=== PATIENT | female | born 1975 | race Caucasian/White ===

== ENCOUNTER 2017-04-05 00:29 | Emergency (ER) | payer MEDICARE ==
[~2017-04-05] VITALS: Ht 160 cm; Wt 84.7 kg
[~2017-04-05 00:29] MED LIST: CYMB30CA PO; LYRI150C PO; MS C30TA PO; OXYC-395 PO; PHEN-414 PO; PHENO60 PO; XANA1TAB2 PO
[2017-04-05 00:36] VITALS: BP 115/89; PULSE 96; RESP 20; TEMP 97.6; O2SAT 99
[2017-04-05] MEDS ORDERED: LEVE250 PO (00:52)
[2017-04-05] MEDS ORDERED: MS C15TA2 PO (00:52)
[2017-04-05] MEDS ORDERED: TIZA4CAP3 PO (00:53)
[2017-04-05] MEDS ORDERED: HALC0.25 PO (00:54)
--- NOTE | 2017-04-05 02:41 | PD ---
HPI Chief Complaint: GI Complaint Time Seen by Provider: 02:35 Travel History International Travel<30 days: No Contact w/Intl Traveler<30days: No Traveled to known affect area: No History of Present Illness HPI The patient is a 42-year-old female that has a history of polysubstance abuse and has been taking narcotics as well as benzodiazepines and alcohol. She went into a hospital in [place] to detox and they said she had a "blocked bowel". They gave her medications to relieve a fecal impaction. Her last bowel movement was 2 days ago. Apparently she continues to take prescribe narcotics, MS Contin, for pain management. She is also on Xanax and Cymbalta as well as pregabalin. She does pass gas. She has nausea without vomiting. PFSH Past Medical History ADD: Yes Arthritis: Yes (BACK) Asthma: No Autoimmune Disease: No Blood Disorders: No Bipolar Disorder: Yes Anxiety: Yes Depression: Yes Heart Rhythm Problems: No Cancer: No Cardiovascular Problems: Yes (HYPERLIPIDEMIA) High Cholesterol: Yes Chemotherapy: No Chest Pain: No Congestive Heart Failure: No COPD: Yes Diabetes: No Diminished Hearing: No Endocrine: No Fibromyalgia: Yes Gastrointestinal Disorders: No GERD: Yes Genitourinary: No Headaches: Yes Hepatitis: No Hiatal Hernia: No Herniated Disk: Yes (L4, L5, FRACTURED COCCYX) Hypertension: No Immune Disorder: No Implanted Vascular Access Dvce: Yes Kidney Stones: No Musculoskeletal: Yes Neurologic: Yes Psychiatric: Yes Reproductive: No Respiratory: Yes Immunizations Current: No Migraines: Yes Radiation Therapy: No Renal Failure: No Seizures: Yes Sickle Cell Disease: No Sleep Apnea: No Thyroid Disease: No PNEUMOCCOCAL Vaccine (Year): 2 ?: Not LMP: 5-5-17 : 3 Para: 0 Miscarriage: 3 : 0 Dilation and Curettage (D&C): Yes Past Surgical History Abdominal Surgery: No AICD: No Arteriovenous Shunt: No Body Medical Devices: 2 METAL PLATES AND SCREWS IN LEFT ELBOW Cardiac Surgery: No Ear Surgery: No Endocrine Surgery: No Eye Surgery: No Genitourinary Surgery: No Gynecologic Surgery: Yes (3 D&C'S) Insulin Pump: No Joint Replacement: No Neurologic Surgery: No Oral Surgery: No Pacemaker: No Thoracic Surgery: No Tonsillectomy: Yes Other Surgery: Yes Social History Alcohol Use: Yes (PRINCESS ONLY) Tobacco Use: Yes (1.5 PPD) Substance Use: Yes (WEED OCCASIONAL) Allergies-Medications (Allergen,Severity, Reaction): Coded Allergies: Penicillin (Verified Allergy, Severe, "rash", 04/05/17) Uncoded Allergies: SUBUTEX (Allergy, Severe, 03/10/11) CONTROL PILLS (Adverse Reaction, Severe, 03/10/11) Reported Meds & Prescriptions Reported Meds & Active Scripts Active Reported Halcion (Triazolam) 0.25 Mg Tab 0.5 Mg PO HS Tizanidine (Tizanidine HCl) 4 Mg Cap 4 Mg PO TID Keppra (Levetiracetam) 250 Mg Tab 500 Mg PO BID Ms Contin (Morphine Sulfate) 15 Mg Tab 30 Mg PO Q8H Xanax (Alprazolam) 1 Mg Tab 1 Mg PO Q6H PRN Lyrica (Pregabalin) 150 Mg Cap 150 Mg PO BID Cymbalta DR (Duloxetine HCl) 30 Mg Capdr 60 Mg PO DAILY Review of Systems Except as stated in HPI: all other systems reviewed are Neg Physical Exam Narrative GENERAL: The patient is alert, oriented 3, exhibits some slurred speech. Her vital signs show heart rate of 96 but are otherwise normal. She does appear mildly dehydrated. SKIN: Focused skin assessment warm/dry. HEAD: Atraumatic. Normocephalic. EYES: Pupils equal and round. No scleral icterus. No injection or drainage. ENT: No nasal bleeding or discharge. Mucous membranes pink and moist. NECK: Trachea midline. No JVD. CARDIOVASCULAR: Regular rate and rhythm. No murmur appreciated. RESPIRATORY: No accessory muscle use. Clear to auscultation. Breath sounds equal bilaterally. GASTROINTESTINAL: Abdomen soft, with slight tenderness in the left upper quadrant direct palpation, nondistended. Hepatic and splenic margins not palpable. No guarding or rebound is present. MUSCULOSKELETAL: No obvious deformities. No clubbing. No cyanosis. No edema. NEUROLOGICAL: Awake and alert. No obvious cranial nerve deficits. Motor grossly within normal limits. Normal speech. PSYCHIATRIC: Appropriate mood and affect; insight and judgment normal. Data Data Last Documented VS Vital Signs Date Time Temp Pulse Resp B/P Pulse Ox O2 Delivery O2 Flow Rate FiO2 04/05/17 03:53 98.3 83 16 119/72 98 Room Air Orders Complete Blood Count With Diff (5/25/17 02:42) Comprehensive Metabolic Panel (04/05/17 02:42) Urinalysis - C+S If Indicated (04/05/17 02:42) Ct Abd/Pel W Iv Contrast(Rout) (04/05/17 02:42) Drug Screen, Random Urine (04/05/17 02:42) Ed Urine Pregnancytest Poc (04/05/17 02:44) Iohexol 350 Inj (Omnipaque 350 Inj) (04/05/17 03:38) Labs Laboratory Tests Test 04/05/17 03:00 White Blood Count 5.7 TH/MM3 Red Blood Count 3.68 MIL/MM3 Hemoglobin 10.0 GM/DL Hematocrit 29.8 % Mean Corpuscular Volume 81.1 FL Mean Corpuscular Hemoglobin 27.1 PG Mean Corpuscular Hemoglobin 33.5 % Concent Red Cell Distribution Width 13.6 % Platelet Count 227 TH/MM3 Mean Platelet Volume 8.4 FL Neutrophils (%) (Auto) 40.5 % Lymphocytes (%) (Auto) 40.9 % Monocytes (%) (Auto) 8.9 % Eosinophils (%) (Auto) 9.3 % Basophils (%) (Auto) 0.4 % Neutrophils # (Auto) 2.3 TH/MM3 Lymphocytes # (Auto) 2.4 TH/MM3 Monocytes # (Auto) 0.5 TH/MM3 Eosinophils # (Auto) 0.5 TH/MM3 Basophils # (Auto) 0.0 TH/MM3 CBC Comment DIFF FINAL Differential Comment Urine Color STRAW Urine Turbidity CLEAR Urine pH 5.5 Urine Specific Hanson 1.003 Urine Protein NEG mg/dL Urine Glucose (UA) NEG mg/dL Urine Ketones NEG mg/dL Urine Occult Blood NEG Urine Nitrite NEG Urine Bilirubin NEG Urine Leukocyte Esterase NEG Urine RBC 0-2 /hpf Urine WBC 0-2 /hpf Urine Squamous Epithelial 0-5 /hpf Cells Urine Bacteria NONE /hpf Microscopic Urinalysis Comment CULT NOT INDICATED Sodium Level 138 MEQ/L Potassium Level 3.6 MEQ/L Chloride Level 101 MEQ/L Carbon Dioxide Level 29.5 MEQ/L Anion Gap 8 MEQ/L Blood Urea Nitrogen 12 MG/DL Creatinine 0.76 MG/DL Estimat Glomerular Filtration 83 ML/MIN Rate Random Glucose 69 MG/DL Calcium Level 8.5 MG/DL Total Bilirubin 0.2 MG/DL Aspartate Amino Transf 61 U/L (AST/SGOT) Alanine Aminotransferase 83 U/L (ALT/SGPT) Alkaline Phosphatase 204 U/L Total Protein 6.7 GM/DL Albumin 3.1 GM/DL Urine Opiates Screen POS Urine Barbiturates Screen NEG Urine Amphetamines Screen NEG Urine Benzodiazepines Screen POS Urine Cocaine Screen NEG Urine Cannabinoids Screen NEG MDM Medical Decision Making Medical Screen Exam Complete: Yes Emergency Medical Condition: Yes Medical Record Reviewed: Yes Interpretation(s) The urinalysis is normal and culture is not indicated. The toxicology screen is positive for opiates and benzodiazepines, both are prescribed to this patient. The CBC is normal except for hemoglobin of 10.0 and hematocrit of 29.8. The complete metabolic profile shows a GFR of 83, glucose 69, AST of 61 and ALT of 83 and alkaline phosphatase of [address] and albumin [address]1. The CT abdomen pelvis with IV contrast is normal. Differential Diagnosis Bowel obstruction, fecal impaction, opiate-induced constipation, electrolyte disorder, dehydration Narrative Course The patient likely has opioid-induced ileus. She should try to get off all narcotics. There is no evidence of obstruction at this time. Diagnosis Primary Impression: Adynamic ileus Additional Instructions: As we discussed, try to get off all narcotics. I believe that the bowel problems that you are experiencing are from chronic opiate use. Increase liquid intake and follow-up with your primary care physician. Med/Other Pt SpecificInfo: No Change to Meds Disposition: 01 DISCHARGE HOME Condition: Stable Brayden Ann MD April 05, 2017 02:41
[2017-04-05 03:13] LABS: AUTOMATED NEUTROPHIL # 2.3 TH/MM3 (1.8-7.7); BASOPHIL % 0.4 % (0.0-2.0); EOSINOPHIL # 0.5 TH/MM3 (0-0.4); EOSINOPHIL % 9.3 % (0.0-4.0); HEMATOCRIT 29.8 % (35.0-46.0); HEMO FLAGS DIFF FINAL; LYMPH % 40.9 % (9.0-44.0); LYMPHOCYTE # 2.4 TH/MM3 (1.0-4.8); MEAN CELL VOLUME 81.1 FL (80.0-100.0); MEAN CORPUSCULAR HEMOGLOBIN 27.1 PG (27.0-34.0); MEAN CORPUSCULAR HGB CONC 33.5 % (32.0-36.0); MONO % 8.9 % (0.0-8.0); NEUT % 40.5 % (16.0-70.0); PLATELET COUNT 227 TH/MM3 (150-450); RED BLOOD COUNT 3.68 MIL/MM3 (4.00-5.30); RED CELL DISTRIBUTION WIDTH 13.6 % (11.6-17.2); WHITE BLOOD COUNT 5.7 TH/MM3 (4.0-11.0)
[2017-04-05 03:15] LABS: BLOOD, URINE NEG (NEG); GLUCOSE,URINE NEG (NEG); KETONE, URINE NEG (NEG); NITRITE,URINE NEG (NEG); PH, URINE 5.5 (5.0-8.5)
[2017-04-05 03:20] LABS: COMMENT (UR) CULT NOT INDICATED; CULTURE IF INDICATED CULT NOT INDICATED; RBC, URINE 0-2 /hpf (0-3); SQUAMOUS EPITHELIAL CELL URINE 0-5 /hpf (0-5); URINE COLOR STRAW (YELLW/STRAW); WBC, URINE 0-2 /hpf (0-5)
[2017-04-05 03:21] LABS: CHLORIDE 101 MEQ/L (98-107); POTASSIUM 3.6 MEQ/L (3.5-5.1); SODIUM (NA) 138 MEQ/L (136-145)
[2017-04-05 03:23] LABS: AMPHETAMINE, URINE NEG (NEG); BARBITURATES, URINE NEG (NEG)
[2017-04-05 03:24] LABS: ANION GAP 8 MEQ/L (5-15); BICARBONATE 29.5 MEQ/L (21.0-32.0)
[2017-04-05 03:25] LABS: BLOOD UREA NITROGEN 12 MG/DL (7-18)
[2017-04-05 03:28] LABS: ALT (GPT) 83 U/L (10-53); AST (GOT) 61 U/L (15-37); GLOMERULAR FILTRATION RATE 83 ML/MIN (>89)
[2017-04-05 03:29] LABS: TOTAL BILIRUBIN ADULT 0.2 MG/DL (0.2-1.0)
[2017-04-05 03:30] LABS: ALKALINE PHOSPHATASE 204 U/L (45-117)
[2017-04-05 03:31] LABS: COCAINE, URINE NEG (NEG)
[2017-04-05] MEDS ORDERED: IOHEXOL 350 MG/ML 10 ML VIAL (for RAD DIAG) IV ONE (03:38)
[2017-04-05 03:53] VITALS: BP 119/72; PULSE 83; RESP 16; TEMP 98.3; O2SAT 98
--- NOTE | 2017-04-05 04:04 | RADHPO ---
EXAM DATE/TIME: 04/05/2017 03:28 [facility] COMPARISON: CT ABDOMEN & PELVIS W CONTRAST, April 17, 2014, 22:12. INDICATIONS : Abdominal pain and bloating. IV CONTRAST: 100 cc Omnipaque 350 (iohexol) IV ORAL CONTRAST: No oral contrast ingested. RADIATION DOSE: 15.39 CTDIvol (mGy) MEDICAL HISTORY : None SURGICAL HISTORY : None. ENCOUNTER: Initial ACUITY: 1 day PAIN SCALE: 8/10 LOCATION: abdomen TECHNIQUE: Volumetric scanning of the abdomen and pelvis was performed. Using automated exposure control and ad justment of the mA and/or kV according to patient size, radiation dose was kept as low as reasonably achievable to obtain optimal diagnostic quality images. FINDINGS: LOWER LUNGS: The visualized lower lungs are clear. LIVER: Homogeneous density without lesion. There is no dilation of the biliary tree. No calcified gallston es. SPLEEN: Normal size without lesion. PANCREAS: Within normal limits. KIDNEYS: Normal in size and shape. There is no mass, stone or hydronephrosis. ADRENAL GLANDS: Within normal limits. VASCULAR: There is no aortic aneurysm. BOWEL/MESENTERY: The stomach, small bowel, and colon demonstrate no acute abnormality. There is no free intraperitone al air or fluid. ABDOMINAL WALL: Within normal limits. RETROPERITONEUM: There is no lymphadenopathy. BLADDER: No wall thickening or mass. REPRODUCTIVE: Within normal limits. INGUINAL: There is no lymphadenopathy or hernia. MUSCULOSKELETAL: Within normal limits for patient age. CONCLUSION: Normal examination. Victor Manuel Yepez MD on April 05, 2017 at 4:02 Board Certified Radiologist. This report was verified electronically.
== END 2017-04-05 04:35 | disposition home or self-care (01) ==
LOC: PHED 00:29
DX: K56.0 Paralytic ileus (principal); F31.9 Bipolar disorder, unspecified; F41.9 Anxiety disorder, unspecified; E78.00 Pure hypercholesterolemia, unspecified; J44.9 Chronic obstructive pulmonary disease, unspecified; M79.7 Fibromyalgia; K21.9 Gastro-esophageal reflux disease without esophagitis; R56.9 Unspecified convulsions; Z79.899 Other long term (current) drug therapy
CPT/HCPCS: 74177; 80053; 80307; 81001; 84703; 85025; 99285; Q9967